=== PATIENT | male | born 1995 | race Hispanic/Latino ===

== ENCOUNTER 2019-10-17 09:45 | Emergency (ER) | payer SELFPAY ==
[2019-10-17] MEDS ORDERED: MEPERIDINE HCL 25 MG/0.5 ML ONE (10:14)
[2019-10-17] MEDS ORDERED: ONDANSETRON 4 MG/2 ML VIAL ONE (10:14)
[2019-10-17] MEDS ORDERED: propofoL 200 MG/20 ML VIAL IV ONE (10:15)
--- NOTE | 2019-10-17 11:23 | EDPHYS ---
Physician Documentation [facility] Name: Kishor León Age: 24 yrs Sex: Male : 1995 Arrival Date: 10/17/2019 Time: 09:46 Bed 7 Private MD: ED Physician Sergio Mayer HPI: 10/17 10:08 This 24 yrs old Male presents to ER via Ambulatory with complaints of Jaw Pain.rn 10:08 The patient presents with pain. The problem is located in the mandible. Onset: The rn symptoms/episode began/occurred just prior to arrival. Modifying factors: The symptoms are alleviated by nothing, the symptoms are aggravated by talking. Severity of symptoms: At their worst the symptoms were mild, in the emergency department the symptoms are unchanged. The patient has experienced a previous episode. Reports yawning, now feels jaw dislocated, has happened once before, no trauma, has not eaten today. Feels like right side is problem side.. Historical: - Allergies: 09:57 No Known Allergies; ss - Home Meds: 09:57 None [Active]; ss - PMHx: 09:57 None; ss - PSHx: 09:57 None; ss - Immunization history:: Adult Immunizations up to date. - Social history:: Smoking status: Patient/guardian denies using tobacco. - Ebola Screening: : Patient denies exposure to infectious person Patient denies travel to an Ebola-affected area in the 21 days before illness onset. - Family history:: not pertinent. - Hospitalizations: : No recent hospitalization is reported. ROS: 10:08 Constitutional: Negative for fever, chills, and weight loss, Eyes: Negative for injury, rn pain, redness, and discharge, ENT: + right jaw pain Neck: Negative for injury, pain, and swelling. Exam: 10:08 Constitutional: This is a well developed, well nourished patient who is awake, alert, rn and in no acute distress. Head/Face: Normocephalic, atraumatic. ENT: + jaw open, unable to close, seems deviated to left. Neck: Trachea midline, no thyromegaly or masses palpated, and no cervical lymphadenopathy. Supple, full range of motion without nuchal rigidity, or vertebral point tenderness. No Meningismus. Vital Signs: 09:56 Temp 98.7(TE); em1 09:57 BP 130 / 75; Pulse 82; Resp 17; Pulse Ox 100% on R/A; Weight 49.9 kg; ss 10:26 BP 118 / 79; Pulse 74 MON; Resp 16 S; Pulse Ox 100% on R/A; sg 10:36 BP 123 / 74; Pulse 110 MON; Resp 14; Pulse Ox 99% on R/A; sg 10:40 BP 129 / 80; Pulse 77; Resp 16; Pulse Ox 97% ; sv 10:43 BP 129 / 80; Pulse 80; Resp 16; Temp 98.7; Pulse Ox 100% on R/A; sg 10:43 BP 124 / 82; Pulse 77; Resp 16; Pulse Ox 100% on R/A; sg Procedures: 10:37 Reduction: of the Mandible, using traction, manipulation, Patient tolerated well. rn Moderate sedation: Pre-procedure assessment: the patient has been NPO 12 hour(s) prior to arrival, ASA physical classification: I - healthy, no underlying organic disease, Airway assessment: able to hyperextend neck, able to maintain airway, can open mouth without difficulty, Monitoring during procedure: poultry cleaner, continuous pulse oximetry, nurse at bedside at all times, Medications employed: demerol, propofol, Post-procedure assessment: the patient is mildly sedated, Respiratory status: even and unlabored, a reversal agent was not used. MDM: 09:58 Patient medically screened. rn 10:39 Differential diagnosis: mandibular dislocation. Data reviewed: vital signs, nurses rn notes, and as a result, I will discharge patient. Counseling: I had a detailed discussion with the patient and/or guardian regarding: the historical points, exam findings, and any diagnostic results supporting the discharge/admit diagnosis, the need for outpatient follow up, to return to the emergency department if symptoms worsen or persist or if there are any questions or concerns that arise at home. Response to treatment: the patient's symptoms have resolved after treatment, the patient's condition has returned to base line, the patient is now symptom free, and as a result, I will discharge patient. ED course: FROM jaw, tolerated reduction well, will dc home when sedation wears off. . 11:21 ED course: Wide awake, will dc with ENT f/u.. rn 10/17 10:03 Order name: Moderate Sedation; Complete Time: 10:23 rn 10/17 10:03 Order name: NPO; Complete Time: : rn Administered Medications: 10:34 Drug: Zofran 4 mg Route: IVP; Site: right antecubital; sg 10:34 Drug: Demerol 25 mg Route: IVP; Site: right antecubital; sg 10:36 Drug: Propofol 40 mg Route: IVP; Site: right antecubital; sg Disposition: 10/17/19 11:22 Discharged to Home. Impression: Mandibular dislocation. - Condition is Stable. - Discharge Instructions: Jaw Dislocation. - Medication Reconciliation Form, Thank You Letter, Antibiotic Education, Prescription Opioid Use form. - Follow up: Mely Blunt MD; When: As needed; Reason: Recheck today's complaints, Re-evaluation by your physician. - Problem is new. - Symptoms are resolved. Signatures: Dispatcher [employer] EDMT Sabas Mcwilliams RN RN sg Nieto, Roman, MD MD rn Smirch, Shelby, RN RN ss Corrections: (The following items were deleted from the chart) 10:55 10:04 Mandible <4 Views+RAD.RAD.BRZ ordered. [facility] EDMT 11:30 11:22 10/17/2019 11:22 Discharged to Home. Impression: Mandibular dislocation. sg Condition is Stable. Forms are Medication Reconciliation Form, Thank You Letter, Antibiotic Education, Prescription Opioid Use. Follow up: Mely Blunt; When: As needed; Reason: Recheck today's complaints, Re-evaluation by your physician. Problem is new. Symptoms are resolved. rn
--- NOTE | 2019-10-17 11:23 | ER ---
Nurse's Notes [facility] Name: Kishor León Age: 24 yrs Sex: Male : 1995 Arrival Date: 10/17/2019 Time: 09:46 Bed 7 Private MD: Diagnosis: Mandibular dislocation Presentation: 10/17 09:56 Presenting complaint: Patient states: yawned 30 minutes ago and now jaw is stuck open. ss Pt reports this has occurred in the past. Transition of care: patient was not received from another setting of care. Onset of symptoms was October 17, 2019. Risk Assessment: Do you want to hurt yourself or someone else? Patient reports no desire to harm self or others. Initial Sepsis Screen: Does the patient meet any 2 criteria? No. Patient's initial sepsis screen is negative. Does the patient have a suspected source of infection? No. Patient's initial sepsis screen is negative. Care prior to arrival: None. 09:56 Acuity: RISHI 3 ss 09:56 Method Of Arrival: Ambulatory ss Historical: - Allergies: 09:57 No Known Allergies; ss - Home Meds: 09:57 None [Active]; ss - PMHx: 09:57 None; ss - PSHx: 09:57 None; ss - Immunization history:: Adult Immunizations up to date. - Social history:: Smoking status: Patient/guardian denies using tobacco. - Ebola Screening: : Patient denies exposure to infectious person Patient denies travel to an Ebola-affected area in the 21 days before illness onset. - Family history:: not pertinent. - Hospitalizations: : No recent hospitalization is reported. Screenin:15 Abuse screen: Denies threats or abuse. Denies injuries from another. Nutritional sg screening: No deficits noted. Tuberculosis screening: No symptoms or risk factors identified. Never had TB. Fall Risk None identified. Assessment: 10:10 General: Appears in no apparent distress. uncomfortable, well groomed, well developed, sg well nourished, Behavior is calm, cooperative, appropriate for age. Pain: Complains of pain in right jaw Quality of pain is described as aching. Neuro: Level of Consciousness is awake, alert, obeys commands. Cardiovascular: Capillary refill is brisk in bilateral fingers Patient's skin is warm and dry. Chest pain is denied. Respiratory: Airway is patent Respiratory effort is even, unlabored, Respiratory pattern is regular, symmetrical. GI: No signs and/or symptoms were reported involving the gastrointestinal system. : No signs and/or symptoms were reported regarding the genitourinary system. EENT: No signs and/or symptoms were reported regarding the EENT system. Derm: Skin is pink, warm \T\ dry. Musculoskeletal: Circulation, motion, and sensation intact. Range of motion: intact in all extremities, Swelling absent. 10:47 Reassessment: Patient appears in no apparent distress at this time. Patient and/or sg family updated on plan of care and expected duration. Pain level reassessed. Patient is alert, oriented x 3, equal unlabored respirations, skin warm/dry/pink. Patient denies pain at this time. Patient states feeling better. Patient states symptoms have improved. Vital Signs: 09:56 Temp 98.7(TE); em1 09:57 BP 130 / 75; Pulse 82; Resp 17; Pulse Ox 100% on R/A; Weight 49.9 kg; ss 10:26 BP 118 / 79; Pulse 74 MON; Resp 16 S; Pulse Ox 100% on R/A; sg 10:36 BP 123 / 74; Pulse 110 MON; Resp 14; Pulse Ox 99% on R/A; sg 10:40 BP 129 / 80; Pulse 77; Resp 16; Pulse Ox 97% ; sv 10:43 BP 129 / 80; Pulse 80; Resp 16; Temp 98.7; Pulse Ox 100% on R/A; sg 10:43 BP 124 / 82; Pulse 77; Resp 16; Pulse Ox 100% on R/A; sg ED Course: 09:46 Patient arrived in ED. as 09:56 Triage completed. ss 09:57 Arm band placed on right wrist. ss 09:58 Sergio Mayer MD is Attending Physician. rn 10:01 Sabas Mcwilliams, JEANETTE is Primary Nurse. sg 10:25 Inserted saline lock: 22 gauge in right antecubital area, using aseptic technique. sg 10:39 Assist provider with reduction of right TMJ using manipulation, Set up for procedure. sg Performed by Sergio Mayer MD Patient tolerated well. 10:40 Patient has correct armband on for positive identification. Placed in gown. Bed in low sg position. Side rails up X2. 11:22 Mely Blunt MD is Referral Physician. rn 11:25 IV discontinued, intact, bleeding controlled, No redness/swelling at site. Pressure sg dressing applied. Administered Medications: 10:34 Drug: Zofran 4 mg Route: IVP; Site: right antecubital; sg 10:34 Drug: Demerol 25 mg Route: IVP; Site: right antecubital; sg 10:36 Drug: Propofol 40 mg Route: IVP; Site: right antecubital; sg Outcome: 11:22 Discharge ordered by MD. rn 11:25 Discharged to home ambulatory, with family. sg 11:25 Condition: good 11:25 Discharge instructions given to patient, family, Instructed on discharge instructions, follow up and referral plans. safety practices, Demonstrated understanding of instructions, follow-up care. 11:30 Patient left the ED. sg Signatures: Mely Daigle, RN JEANETTE Sabas Mcwilliams RN RN sg Martinez, Amelia as Nieto, Roman, MD MD rn Martinez, Haley Russell RN RN Corrections: (The following items were deleted from the chart) 10:55 10:38 Zofran 4 mg IVP in right antecubital sg sg 10:55 10:38 Demerol 25 mg IVP in right antecubital sg sg 10:55 10:39 Propofol 40 mg IVP in right antecubital sg sg
[2019-10-17 11:39] VITALS: TEMP 98.7
[2019-10-17 11:47] VITALS: BP 124/82; O2SAT 100
== END 2019-10-17 11:30 | disposition home or self-care (01) ==
LOC: ER 09:45
PROC: 0RSCXZZ Reposition Right Temporomandibular Joint, External Approach (ICD-10-PCS; principal; 2019-10-17)
DX: S03.01XA Dislocation of jaw, right side, initial encounter (principal)
CPT/HCPCS: 96374; 96375; 99285; J2175; J2405; J2704

== ENCOUNTER 2020-09-02 | Emergency (ER) | payer SELFPAY ==
--- NOTE | 2020-09-02 19:36 | EDPHYS ---
Physician Documentation [facility] Name: Kishor León Age: 25 yrs Sex: Male : 1995 Arrival Date: 09/02/2020 Time: 18:30 Bed 18 Private MD: ED Physician Hermes Rudolph HPI: 09/02 19:28 This 25 yrs old Male presents to ER via Ambulatory with complaints of Jaw Pain.mh7 19:28 The patient or guardian reports pain. The complaints affect the right jaw and left jaw. mh7 Context of injury: The problem was sustained at home, resulted from yawning. Onset: The symptoms/episode began/occurred just prior to arrival, today. Associated signs and symptoms: Loss of consciousness: This patient did not experience any loss of consciousness. Pertinent negatives: patient denies any alcohol consumption, biting tongue, dazed, double vision, headache, incontinence, injury, nausea, neck pain, seizure, shortness of breath, tinnitus, vomiting, weakness in extremities, generalized weakness. Severity of symptoms: At their worst the symptoms were moderate, earlier today, in the emergency department the symptoms are unchanged. The patient has experienced similar episodes in the past, a few times. Historical: - Allergies: 19:05 No Known Allergies; hb - Immunization history:: Adult Immunizations up to date. - Social history:: Smoking status: Patient denies any tobacco usage or history of. ROS: 19:28 Constitutional: Negative for fever, chills, and weight loss, Eyes: Negative for injury, mh7 pain, redness, and discharge, Neck: Negative for injury, pain, and swelling, Cardiovascular: Negative for chest pain, palpitations, and edema, Respiratory: Negative for shortness of breath, cough, wheezing, and pleuritic chest pain, Abdomen/GI: Negative for abdominal pain, nausea, vomiting, diarrhea, and constipation, Back: Negative for injury and pain, : Negative for injury, bleeding, discharge, and swelling, MS/Extremity: Negative for injury and deformity, Skin: Negative for injury, rash, and discoloration, Neuro: Negative for headache, weakness, numbness, tingling, and seizure, Psych: Negative for depression, anxiety, suicide ideation, homicidal ideation, and hallucinations, Allergy/Immunology: Negative for hives, rash, and allergies, Endocrine: Negative for neck swelling, polydipsia, polyuria, polyphagia, and marked weight changes, Hematologic/Lymphatic: Negative for swollen nodes, abnormal bleeding, and unusual bruising. Exam: 19:28 Eyes: Pupils equal round and reactive to light, extra-ocular motions intact. Lids and mh7 lashes normal. Conjunctiva and sclera are non-icteric and not injected. Cornea within normal limits. Periorbital areas with no swelling, redness, or edema. 19:28 Neck: Trachea midline, no thyromegaly or masses palpated, and no cervical lymphadenopathy. Supple, full range of motion without nuchal rigidity, or vertebral point tenderness. No Meningismus. Chest/axilla: Normal chest wall appearance and motion. Nontender with no deformity. No lesions are appreciated. Cardiovascular: Regular rate and rhythm with a normal S1 and S2. No gallops, murmurs, or rubs. Normal PMI, no JVD. No pulse deficits. Respiratory: Lungs have equal breath sounds bilaterally, clear to auscultation and percussion. No rales, rhonchi or wheezes noted. No increased work of breathing, no retractions or nasal flaring. Abdomen/GI: Soft, non-tender, with normal bowel sounds. No distension or tympany. No guarding or rebound. No evidence of tenderness throughout. Back: No spinal tenderness. No costovertebral tenderness. Full range of motion. Skin: Warm, dry with normal turgor. Normal color with no rashes, no lesions, and no evidence of cellulitis. MS/ Extremity: Pulses equal, no cyanosis. Neurovascular intact. Full, normal range of motion. Neuro: Awake and alert, GCS 15, oriented to person, place, time, and situation. Cranial nerves II-XII grossly intact. Motor strength 5/5 in all extremities. Sensory grossly intact. Cerebellar exam normal. Normal gait. Psych: Awake, alert, with orientation to person, place and time. Behavior, mood, and affect are within normal limits. 19:28 Constitutional: The patient appears in no acute distress, alert, awake, uncomfortable. 19:28 Head/face: Noted is tenderness, that is mild, of the right jaw and left jaw, mouth open unable to close. 19:28 ENT: External ear(s): are unremarkable, Nose: is normal, Mouth: open unable to close, Posterior pharynx: is normal, airway is patent, Dental exam: normal. Vital Signs: 19:04 BP 133 / 74; Pulse 68; Resp 16; Temp 99.2; Pulse Ox 100% on R/A; Pain 8/10; hb Procedures: 19:28 Reduction: of the left jaw and right jaw, using traction, manipulation, Patient mh7 tolerated well. MDM: 19:28 Differential diagnosis: TMJ disorder, TMJ dislocation. Data reviewed: vital signs, [facility] nurses notes, old medical records. Data interpreted: Pulse oximetry: on room air is 100 %. Interpretation: normal. Counseling: I had a detailed discussion with the patient and/or guardian regarding: the historical points, exam findings, and any diagnostic results supporting the discharge/admit diagnosis, the need for outpatient follow up, an ENT specialist, to return to the emergency department if symptoms worsen or persist or if there are any questions or concerns that arise at home. Response to treatment: the patient's symptoms have resolved after treatment, the patient's blood pressure is in an acceptable range, mental status has returned to baseline, the patient no longer shows bradycardia, the patient is not short of breath, the patient is not tachycardic, the patient's pain is gone, the patient's temperature has normalized. 19:35 Patient medically screened. [facility] Administered Medications: No medications were administered Disposition: 09/02/20 19:35 Discharged to Home. Impression: Temporal Mandibular Joint Dislocation. - Condition is Stable. - Discharge Instructions: Jaw Dislocation, [id number]. - Medication Reconciliation Form, Thank You Letter, Antibiotic Education, Prescription Opioid Use form. - Follow up: Mely Blunt MD; When: 1 - 2 days; Reason: Worsening of condition, Recheck today's complaints. - Problem is an acute exacerbation. - Symptoms are resolved. Signatures: Destiny Fallon RN RN lp1 Ana Maria Tripathi RN RN Hermes Rudolph MD MD [facility] Corrections: (The following items were deleted from the chart) 19:39 19:35 09/02/2020 19:35 Discharged to Home. Impression: Temporal Mandibular Joint lp1 Dislocation. Condition is Stable. Forms are Medication Reconciliation Form, Thank You Letter, Antibiotic Education, Prescription Opioid Use. Follow up: Mely Blunt; When: 1 - 2 days; Reason: Worsening of condition, Recheck today's complaints. Problem is an acute exacerbation. Symptoms are resolved. mh7
--- NOTE | 2020-09-02 19:36 | ER ---
Nurse's Notes [facility] Name: Kishor León Age: 25 yrs Sex: Male : 1995 Arrival Date: 09/02/2020 Time: 18:30 Bed 18 Private MD: Diagnosis: Temporal Mandibular Joint Dislocation Presentation: 09/02 19:04 Chief complaint: Jaw locked open x 1 hr. Coronavirus screen: At this time, the client hb does not indicate any symptoms associated with coronavirus-19. Ebola Screen: No symptoms or risks identified at this time. Initial Sepsis Screen: Does the patient meet any 2 criteria? No. Patient's initial sepsis screen is negative. Does the patient have a suspected source of infection? No. Patient's initial sepsis screen is negative. Risk Assessment: Do you want to hurt yourself or someone else? Patient reports no desire to harm self or others. Onset of symptoms was September 02, 2020. 19:04 Method Of Arrival: Ambulatory hb 19:04 Acuity: RISHI 3 hb 19:07 Acuity: RISHI 2 lp1 Triage Assessment: 19:20 General: Appears in no apparent distress. Behavior is calm. Pain: Denies pain. EENT: lp1 Oral mucosa is moist. Good dentition noted. Throat is clear mouth partially open, no ROM. Neuro: No deficits noted. Cardiovascular: No deficits noted. Respiratory: Airway is patent. GI: No signs and/or symptoms were reported involving the gastrointestinal system. : No signs and/or symptoms were reported regarding the genitourinary system. Derm: Skin is pink, warm \T\ dry. Musculoskeletal: No deficits noted. Historical: - Allergies: 19:05 No Known Allergies; hb - Immunization history:: Adult Immunizations up to date. - Social history:: Smoking status: Patient denies any tobacco usage or history of. Screenin:32 Abuse screen: Denies threats or abuse. Denies injuries from another. Nutritional lp1 screening: No deficits noted. Tuberculosis screening: No symptoms or risk factors identified. Fall Risk None identified. Assessment: 19:32 Reassessment: Dr. Rudolph at bedside to perform manual manipulation to realign jaw; lp1 patient tolerated well. Vital Signs: 19:04 BP 133 / 74; Pulse 68; Resp 16; Temp 99.2; Pulse Ox 100% on R/A; Pain 8/10; hb ED Course: 18:30 Patient arrived in ED. ds1 19:05 Triage completed. hb 19:05 Arm band placed on. hb 19:10 Hermes Rudolph MD is Attending Physician. 7 19:32 Destiny Fallon, RN is Primary Nurse. lp1 19:34 Mely Blunt MD is Referral Physician. mh7 19:34 Patient has correct armband on for positive identification. lp1 19:34 No provider procedures requiring assistance completed. Patient did not have IV access lp1 during this emergency room visit. Administered Medications: No medications were administered Outcome: 19:35 Discharge ordered by MD. mh7 19:39 Discharged to home ambulatory, with family. lp1 19:39 Condition: good 19:39 Discharge instructions given to patient, Instructed on discharge instructions, follow up and referral plans. Demonstrated understanding of instructions, follow-up care, splint care, No opening mouth wide, soft foods, OTC meds for pain 19:39 Patient left the ED. lp1 Signatures: Rosa Urrutia ds1 Destiny Fallon, JEANETTE RN 1 Ana Maria Tripathi, JEANETTE RN Hermes Rudolph MD MD [facility]
== END 2020-09-02 19:39 | disposition home or self-care (01) ==
PROC: 0RSDXZZ Reposition Left Temporomandibular Joint, External Approach (ICD-10-PCS; principal; 2020-09-02)
PROC: 0RSCXZZ Reposition Right Temporomandibular Joint, External Approach (ICD-10-PCS; 2020-09-02)
DX: S03.03XA Dislocation of jaw, bilateral, initial encounter (principal)
CPT/HCPCS: 99281

== ENCOUNTER 2021-02-18 02:17 | Emergency (ER) | payer SELFPAY ==
--- NOTE | 2021-02-18 03:01 | ER ---
Nurse's Notes [facility] Name: Kishor León Age: 25 yrs Sex: Male : 1995 Arrival Date: 02/18/2021 Time: 02:22 Bed 23 Private MD: Diagnosis: Temporomandibular Joint Disclocation Presentation: 02/18 02:35 Chief complaint: Parent and/or Guardian states: He yawned and dislocated his jaw, its iw happened before. Coronavirus screen: Client denies travel out of the [place] in the last 14 days. At this time, the client does not indicate any symptoms associated with coronavirus-19. Ebola Screen: No symptoms or risks identified at this time. Initial Sepsis Screen: Does the patient meet any 2 criteria? No. Patient's initial sepsis screen is negative. Does the patient have a suspected source of infection? No. Patient's initial sepsis screen is negative. Risk Assessment: Do you want to hurt yourself or someone else? Patient reports no desire to harm self or others. Onset of symptoms was February 18, 2021. 02:35 Method Of Arrival: Ambulatory iw 02:35 Acuity: RISHI 4 iw Historical: - Allergies: 02:37 No Known Allergies; iw - Home Meds: 02:37 None [Active]; iw - PMHx: 02:37 None; iw - PSHx: 02:37 None; iw - Immunization history:: Adult Immunizations unknown, Client reports having NOT received the Covid vaccine. - Social history:: Smoking status: Patient denies any tobacco usage or history of. Screenin:42 Abuse screen: Denies threats or abuse. Nutritional screening: No deficits noted. iw Tuberculosis screening: No symptoms or risk factors identified. Fall Risk None identified. Assessment: 02:41 General: Appears in no apparent distress. Behavior is calm, cooperative. Pain: iw Complains of pain in right jaw and left jaw. Neuro: No deficits noted. Cardiovascular: Patient's skin is warm and dry. Respiratory: Respiratory effort is even, unlabored. GI: No signs and/or symptoms were reported involving the gastrointestinal system. : No signs and/or symptoms were reported regarding the genitourinary system. EENT: JAYNA jaw dislocation noted. . Musculoskeletal: Circulation, motion, and sensation intact. Vital Signs: 02:35 BP 118 / 77; Pulse 77; Resp 16; Temp 97.3; Pulse Ox 100% on R/A; Weight 52.16 kg; iw Elinor Coma Score: 02:52 Eye Response: spontaneous(4). Verbal Response: oriented(5). Motor Response: obeys mh7 commands(6). Total: 15. 02:52 Eye Response: spontaneous(4). Verbal Response: oriented(5). Motor Response: obeys mh7 commands(6). Total: 15. ED Course: 02:22 Patient arrived in ED. es 02:36 Triage completed. iw 02:37 Arm band placed on right wrist. iw 02:41 Shara Garza RN is Primary Nurse. iw 02:41 Hermes Rudolph MD is Attending Physician. mh7 02:42 Patient has correct armband on for positive identification. iw 02:42 No provider procedures requiring assistance completed. Patient did not have IV access iw during this emergency room visit. 02:58 Mely Blunt MD is Referral Physician. 7 Administered Medications: No medications were administered Outcome: 02:43 Discharged to home ambulatory. iw 02:43 Condition: stable 02:43 Discharge instructions given to patient, family, Instructed on follow up and referral plans. Demonstrated understanding of instructions, follow-up care. 03:00 Discharge ordered by . mh7 03:05 Patient left the ED. iw Signatures: Patti Escobar Irene, JEANETTE REID iw Hermes Rudolph MD MD mh7
--- NOTE | 2021-02-18 03:01 | EDPHYS ---
Physician Documentation [facility] Name: Kishor León Age: 25 yrs Sex: Male : 1995 Arrival Date: 02/18/2021 Time: 02:22 Bed 23 Private MD: ED Physician Hermes Rudolph HPI: 02/18 02:47 This 25 yrs old Male presents to ER via Ambulatory with complaints of mh7 Dislocated jaw. 02:49 The patient or guardian reports pain. The complaints affect the right jaw and left jaw. mh7 Context of injury: The problem was sustained at home, resulted from yawning. Onset: The symptoms/episode began/occurred today. Associated signs and symptoms: Pertinent negatives: biting tongue, dazed, double vision, headache, injury, nausea, tinnitus, vomiting, weakness in extremities, generalized weakness. Severity of symptoms: At their worst the symptoms were moderate, earlier today, in the emergency department the symptoms are unchanged. 02:52 The patient has experienced similar episodes in the past, multiple times. mh7 Historical: - Allergies: 02:37 No Known Allergies; iw - Home Meds: 02:37 None [Active]; iw - PMHx: 02:37 None; iw - PSHx: 02:37 None; iw - Immunization history:: Adult Immunizations unknown, Client reports having NOT received the Covid vaccine. - Social history:: Smoking status: Patient denies any tobacco usage or history of. ROS: 02:52 Constitutional: Negative for fever, chills, and weight loss, Eyes: Negative for injury, mh7 pain, redness, and discharge, Neck: Negative for injury, pain, and swelling, Cardiovascular: Negative for chest pain, palpitations, and edema, Respiratory: Negative for shortness of breath, cough, wheezing, and pleuritic chest pain, Abdomen/GI: Negative for abdominal pain, nausea, vomiting, diarrhea, and constipation, Back: Negative for injury and pain, : Negative for injury, bleeding, discharge, and swelling, MS/Extremity: Negative for injury and deformity, Skin: Negative for injury, rash, and discoloration, Neuro: Negative for headache, weakness, numbness, tingling, and seizure, Psych: Negative for depression, anxiety, suicide ideation, homicidal ideation, and hallucinations, Allergy/Immunology: Negative for hives, rash, and allergies, Endocrine: Negative for neck swelling, polydipsia, polyuria, polyphagia, and marked weight changes, Hematologic/Lymphatic: Negative for swollen nodes, abnormal bleeding, and unusual bruising. Exam: 02:52 Constitutional: This is a well developed, well nourished patient who is awake, alert, mh7 and in no acute distress. 02:52 Eyes: Pupils equal round and reactive to light, extra-ocular motions intact. Lids and lashes normal. Conjunctiva and sclera are non-icteric and not injected. Cornea within normal limits. Periorbital areas with no swelling, redness, or edema. ENT: Nares patent. No nasal discharge, no septal abnormalities noted. Tympanic membranes are normal and external auditory canals are clear. Oropharynx with no redness, swelling, or masses, exudates, or evidence of obstruction, uvula midline. Mucous membranes moist. Neck: Trachea midline, no thyromegaly or masses palpated, and no cervical lymphadenopathy. Supple, full range of motion without nuchal rigidity, or vertebral point tenderness. No Meningismus. Chest/axilla: Normal chest wall appearance and motion. Nontender with no deformity. No lesions are appreciated. Cardiovascular: Regular rate and rhythm with a normal S1 and S2. No gallops, murmurs, or rubs. Normal PMI, no JVD. No pulse deficits. Respiratory: Lungs have equal breath sounds bilaterally, clear to auscultation and percussion. No rales, rhonchi or wheezes noted. No increased work of breathing, no retractions or nasal flaring. Abdomen/GI: Soft, non-tender, with normal bowel sounds. No distension or tympany. No guarding or rebound. No evidence of tenderness throughout. Back: No spinal tenderness. No costovertebral tenderness. Full range of motion. Skin: Warm, dry with normal turgor. Normal color with no rashes, no lesions, and no evidence of cellulitis. MS/ Extremity: Pulses equal, no cyanosis. Neurovascular intact. Full, normal range of motion. Neuro: Awake and alert, GCS 15, oriented to person, place, time, and situation. Cranial nerves II-XII grossly intact. Motor strength 5/5 in all extremities. Sensory grossly intact. Cerebellar exam normal. Normal gait. Psych: Awake, alert, with orientation to person, place and time. Behavior, mood, and affect are within normal limits. 02:52 Head/face: Noted is tenderness, that is mild, of the right jaw and left jaw, displacement right jaw and left jaw. Vital Signs: 02:35 BP 118 / 77; Pulse 77; Resp 16; Temp 97.3; Pulse Ox 100% on R/A; Weight 52.16 kg; iw Stringer Coma Score: 02:52 Eye Response: spontaneous(4). Verbal Response: oriented(5). Motor Response: obeys mh7 commands(6). Total: 15. 02:52 Eye Response: spontaneous(4). Verbal Response: oriented(5). Motor Response: obeys mh7 commands(6). Total: 15. Procedures: 02:52 Reduction: of the left jaw and right jaw, using manipulation, Patient tolerated well. [facility] MDM: 02:52 Differential diagnosis: temporomandibular joint dislocation, mandible dislocation. Data [facility] reviewed: vital signs, nurses notes. Data reviewed: old medical records. Data interpreted: Pulse oximetry: on room air is 100 %. Interpretation: normal. Counseling: I had a detailed discussion with the patient and/or guardian regarding: the historical points, exam findings, and any diagnostic results supporting the discharge/admit diagnosis, the need for outpatient follow up, to return to the emergency department if symptoms worsen or persist or if there are any questions or concerns that arise at home. 02:58 Response to treatment: the patient's symptoms have resolved after treatment, the [facility] patient's blood pressure is in an acceptable range, mental status has returned to baseline, the patient no longer shows bradycardia, the patient is not short of breath, the patient is not tachycardic, the patient's pain is gone, the patient's temperature has normalized, the patient is now symptom free. 03:00 Patient medically screened. [facility] Administered Medications: No medications were administered Disposition: 02/18/21 03:00 Discharged to Home. Impression: Temporomandibular Joint Disclocation. - Condition is Stable. - Discharge Instructions: Jaw Dislocation, [id number]. - Medication Reconciliation Form, Thank You Letter, Antibiotic Education, Prescription Opioid Use form. - Follow up: Private Physician; When: 1 - 2 days; Reason: Worsening of condition, Recheck today's complaints, Continuance of care, Re-evaluation by your physician. Follow up: Mely Blunt MD; When: 1 - 2 days; Reason: Worsening of condition, Recheck today's complaints. - Problem is an acute exacerbation. - Symptoms have improved. Signatures: Shara Garza, RN RN iw Hermes Rudolph MD MD mh7 Corrections: (The following items were deleted from the chart) 03:05 03:00 02/18/2021 03:00 Discharged to Home. Impression: Temporomandibular Joint iw Disclocation. Condition is Stable. Forms are Medication Reconciliation Form, Thank You Letter, Antibiotic Education, Prescription Opioid Use. Follow up: Private Physician; When: 1 - 2 days; Reason: Worsening of condition, Recheck today's complaints, Continuance of care, Re-evaluation by your physician. Follow up: Mely Blunt; When: 1 - 2 days; Reason: Worsening of condition, Recheck today's complaints. Problem is an acute exacerbation. Symptoms have improved. mh7
[2021-02-18 03:11] VITALS: BP 118/77; TEMP 97.3; O2SAT 100
== END 2021-02-18 03:05 | disposition home or self-care (01) ==
LOC: ER 02:17
PROC: 0RSDXZZ Reposition Left Temporomandibular Joint, External Approach (ICD-10-PCS; principal; 2021-02-18)
PROC: 0RSCXZZ Reposition Right Temporomandibular Joint, External Approach (ICD-10-PCS; 2021-02-18)
DX: S03.03XA Dislocation of jaw, bilateral, initial encounter (principal)
CPT/HCPCS: 99281

== ENCOUNTER 2021-08-02 10:14 | Emergency (ER) | payer SELFPAY ==
--- NOTE | 2021-08-02 10:41 | ER ---
Nurse's Notes [facility] Name: Kishor León Age: 26 yrs Sex: Male : 1995 Arrival Date: 08/02/2021 Time: 10:15 Bed 12 Private MD: Diagnosis: Dislocation of jaw, right side, initial encounter Presentation: 08/02 10:30 Chief complaint: Patient states: Lock Jaw stuck open. Coronavirus screen: Vaccine ch5 status: Patient reports being unvaccinated. Ebola Screen: Patient negative for fever greater than or equal to 101.5 degrees Fahrenheit, and additional compatible Ebola Virus Disease symptoms Patient denies exposure to infectious person. Patient denies travel to an Ebola-affected area in the 21 days before illness onset. Initial Sepsis Screen: Does the patient meet any 2 criteria? No. Patient's initial sepsis screen is negative. Does the patient have a suspected source of infection? No. Patient's initial sepsis screen is negative. Risk Assessment: Do you want to hurt yourself or someone else? Patient reports no desire to harm self or others. Onset of symptoms. Onset of symptoms was August 02, 2021. 10:30 Method Of Arrival: Ambulatory 5 10:30 Acuity: RISHI 4 5 Triage Assessment: 10:32 General: Appears in no apparent distress. Behavior is appropriate for age. Pain: 5 Complains of pain in Jaw. 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 - Social history:: Smoking status: Patient denies any tobacco usage or history of. - Family history:: not pertinent. - Hospitalizations: : No recent hospitalization is reported. Screenin:36 Abuse screen: Denies threats or abuse. Denies injuries from another. Nutritional 5 screening: No deficits noted. Tuberculosis screening: No symptoms or risk factors identified. Fall Risk None identified. Assessment: 10:36 Reassessment: Seen in Triage and put in place by Dr Mayer. Pt tolerated well.. 5 Vital Signs: 10:30 BP 131 / 89; Pulse 66; Resp 18; Temp 97.8(TE); Pulse Ox 100% on R/A; Weight 52.16 kg; ch5 Height 5 ft. 4 in. (162.56 cm); Pain 10/10; 10:30 Body Mass Index 19.74 (52.16 kg, 162.56 cm) 5 ED Course: 10:15 Patient arrived in ED. mr 10:22 Sergio Mayer MD is Attending Physician. rn 10:32 Triage completed. ch5 10:36 Arm band placed on right wrist. ch5 10:36 No provider procedures requiring assistance completed. Patient did not have IV access 5 during this emergency room visit. 10:39 Francheska Le, RN is Primary Nurse. ap3 Administered Medications: No medications were administered Outcome: 10:36 Discharged to home ch5 10:36 Condition: improved 10:36 Discharge instructions given to 10:40 Discharge ordered by . rn 10:42 Patient left the ED. 5 Signatures: Nancy Hampton mr Sergio Mayer MD MD rn Prokisch, Amanda, RN RN ap3 Jonathan Price RN RN 5
--- NOTE | 2021-08-02 10:41 | EDPHYS ---
Physician Documentation [facility] Name: Kishor León Age: 26 yrs Sex: Male : 1995 Arrival Date: 08/02/2021 Time: 10:15 Bed 12 Private MD: ED Physician Sergio Mayer HPI: 08/02 10:35 This 26 yrs old Male presents to ER via Ambulatory with complaints of Jaw rn dislocation. 10:35 The patient presents with pain. The problem is located in the Right temporomandibular rn joint. Onset: The symptoms/episode began/occurred just prior to arrival. Duration: The symptoms. Modifying factors: The symptoms are alleviated by nothing, the symptoms are aggravated by nothing. Severity of symptoms: At their worst the symptoms were mild, in the emergency department the symptoms are unchanged. The patient has experienced similar episodes in the past. The patient has not recently seen a physician. 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 No other injuries or complaints. Feels like right side is the one that is out.. 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 - Social history:: Smoking status: Patient denies any tobacco usage or history of. - Family history:: not pertinent. - Hospitalizations: : No recent hospitalization is reported. ROS: 10:35 Constitutional: Negative for fever, chills, and weight loss, ENT: Positive right TMJ rn dislocation and pain Exam: 10:35 Constitutional: This is a well developed, well nourished patient who is awake, alert, rn and in no acute distress. Head/Face: Normocephalic, atraumatic. ENT: Patient unable to close mouth, resting with mouth open and right-sided temporomandibular joint dislocation evident. No tenderness or dislocation of the left side. Vital Signs: 10:30 BP 131 / 89; Pulse 66; Resp 18; Temp 97.8(TE); Pulse Ox 100% on R/A; Weight 52.16 kg; ch5 Height 5 ft. 4 in. (162.56 cm); Pain 10/10; 10:30 Body Mass Index 19.74 (52.16 kg, 162.56 cm) ch5 Procedures: 10:35 Reduction: of the Right temporomandibular joint, using External reduction using rn pressure on ipsilateral mandibular ramus with contralateral traction of the left jaw. Patient tolerated well and reduction successful. Now has full range of motion of mouth and jaw., Patient tolerated well. MDM: 10:22 Patient medically screened. rn 10:35 Differential diagnosis: Temporomandibular joint dislocation. Data reviewed: vital rn signs, nurses notes, old medical records, and as a result, I will discharge patient. Counseling: I had a detailed discussion with the patient and/or guardian regarding: the historical points, exam findings, and any diagnostic results supporting the discharge/admit diagnosis, the need for outpatient follow up, to return to the emergency department if symptoms worsen or persist or if there are any questions or concerns that arise at home. Response to treatment: the patient's symptoms have resolved after treatment, the patient's condition has returned to base line, the patient is now symptom free, and as a result, I will discharge patient. Special discussion: I discussed with the patient/guardian in detail that at this point there is no indication for admission to the hospital. It is understood, however, that if the symptoms persist or worsen the patient needs to return immediately for re-evaluation. ED course: Taught patient how to reduce temporomandibular joint for future reference.. 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
[2021-08-02 10:49] VITALS: BP 131/89; TEMP 97.8; O2SAT 100
== END 2021-08-02 10:42 | disposition home or self-care (01) ==
LOC: ER 10:14
PROC: 0RSCXZZ Reposition Right Temporomandibular Joint, External Approach (ICD-10-PCS; principal; 2021-08-02)
DX: S03.01XA Dislocation of jaw, right side, initial encounter (principal)
CPT/HCPCS: 99281

== ENCOUNTER 2023-03-24 10:09 | Emergency (ER) | payer SELFPAY ==
--- NOTE | 2023-03-24 11:09 | ER ---
Nurse's Notes [facility] Name: Kishor León Age: 27 yrs Sex: Male : 1995 Arrival Date: 03/24/2023 Time: 10:09 Bed 15 Private MD: Diagnosis: Dislocation of jaw;Jaw pain Presentation: 03/24 10:17 Chief complaint: Patient states: "I dislocated my jaw when I woke up with this morning, aa5 when I yawned". Coronavirus screen: At this time, the client does not indicate any symptoms associated with coronavirus-19. Ebola Screen: Patient denies travel to an Ebola-affected area in the 21 days before illness onset. Initial Sepsis Screen: Does the patient meet any 2 criteria? No. Patient's initial sepsis screen is negative. Does the patient have a suspected source of infection? No. Patient's initial sepsis screen is negative. Risk Assessment: Do you want to hurt yourself or someone else? Patient reports no desire to harm self or others. Onset of symptoms was March 2023. 10:17 Method Of Arrival: Ambulatory aa5 10:17 Acuity: RISHI 3 aa5 Triage Assessment: 10:30 General: Appears in no apparent distress. Behavior is calm, cooperative, appropriate bp for age. Pain: Complains of pain in face and chin. EENT: Reports pain in face and chin. Neuro: No deficits noted. Cardiovascular: No deficits noted. Respiratory: No deficits noted. GI: No signs and/or symptoms were reported involving the gastrointestinal system. : No signs and/or symptoms were reported regarding the genitourinary system. Derm: No deficits noted. Musculoskeletal: Reports pain in chin. Historical: - Allergies: 10:17 No Known Allergies; aa5 - PMHx: 10:17 lock jaw; aa5 - Immunization history:: Adult Immunizations unknown. - Social history:: Smoking status: Patient denies any tobacco usage or history of. - Family history:: not pertinent. Screenin:30 [facility] ED Fall Risk Assessment (Adult) History of falling in the last 3 months, bp including since admission No falls in past 3 months (0 pts). Abuse screen: Denies threats or abuse. Denies injuries from another. Nutritional screening: No deficits noted. Tuberculosis screening: No symptoms or risk factors identified. Assessment: 10:30 General: SEE TRIAGE NOTE. bp 11:30 Reassessment: PT REDUCED OWN MANDIBLE. DC HOME. bp Vital Signs: 10:18 BP 138 / 94; Pulse 70; Resp 16 S; Temp 98.2(TE); Pulse Ox 100% on R/A; Weight 51.26 kg aa5 (M); ED Course: 10:10 Patient arrived in ED. am2 10:17 Arm band placed on. aa5 10:18 Triage completed. aa5 10:23 Vega Zavala, RN is Primary Nurse. bp 10:27 Sarwat Walker MD is Attending Physician. pia 11:08 Anthony Masters DDS is Referral Physician. pia 11:30 Patient has correct armband on for positive identification. Bed in low position. Call bp light in reach. Side rails up X2. 11:30 No provider procedures requiring assistance completed. Patient did not have IV access bp during this emergency room visit. Administered Medications: No medications were administered Medication: 11:30 VIS not applicable for this client. bp Outcome: 11:09 Discharge ordered by . pia 11:30 Discharged to home ambulatory. bp 11:30 Condition: stable 11:30 Discharge instructions given to patient, Instructed on discharge instructions, follow up and referral plans. Demonstrated understanding of instructions, follow-up care. 11:35 Patient left the ED. bp Signatures: Sarwat Walker MD MD cha Calderon, Audri, RN RN aa5 Francheska Candelaria am Vega Zaavla, RN RN bp Corrections: (The following items were deleted from the chart) 10:20 10:18 BP 138 / 94; Pulse 70bpm; Resp 16bpm; Spontaneous; Pulse Ox 100% RA; Temp 98.2F aa5 Temporal; aa5
--- NOTE | 2023-03-24 11:09 | EDPHYS ---
Physician Documentation [facility] Name: Kishor León Age: 27 yrs Sex: Male : 1995 Arrival Date: 03/24/2023 Time: 10:09 Bed 15 Private MD: ED Physician Sarwat Walker HPI: 03/24 11:04 This 27 yrs old Male presents to ER via Ambulatory with complaints of Jaw Pain pia - dislocated. 11:04 The patient presents with pain. The problem is located in the chin. pia Historical: - Allergies: 10:17 No Known Allergies; aa5 - PMHx: 10:17 lock jaw; aa5 - Immunization history:: Adult Immunizations unknown. - Social history:: Smoking status: Patient denies any tobacco usage or history of. - Family history:: not pertinent. ROS: 11:04 Constitutional: Negative for fever, chills, and weight loss, Eyes: Negative for injury, pia pain, redness, and discharge, Neck: Negative for injury, pain, and swelling, Cardiovascular: Negative for chest pain, palpitations, and edema, Respiratory: Negative for shortness of breath, cough, wheezing, and pleuritic chest pain, Abdomen/GI: Negative for abdominal pain, nausea, vomiting, diarrhea, and constipation, Back: Negative for injury and pain, : Negative for injury, bleeding, discharge, and swelling, MS/Extremity: Negative for injury and deformity, Skin: Negative for injury, rash, and discoloration, Neuro: Negative for headache, weakness, numbness, tingling, and seizure, Psych: Negative for depression, anxiety, suicide ideation, homicidal ideation, and hallucinations, Allergy/Immunology: Negative for hives, rash, and allergies, Endocrine: Negative for neck swelling, polydipsia, polyuria, polyphagia, and marked weight changes. 11:04 ENT: Positive for jaw dislocated. Exam: 11:04 Constitutional: This is a well developed, well nourished patient who is awake, alert, pia and in no acute distress. Eyes: Pupils equal round and reactive to light, extra-ocular motions intact. Lids and lashes normal. Conjunctiva and sclera are non-icteric and not injected. Cornea within normal limits. Periorbital areas with no swelling, redness, or edema. ENT: Nares patent. No nasal discharge, no septal abnormalities noted. Tympanic membranes are normal and external auditory canals are clear. Oropharynx with no redness, swelling, or masses, exudates, or evidence of obstruction, uvula midline. Mucous membranes moist. Neck: Trachea midline, no thyromegaly or masses palpated, and no cervical lymphadenopathy. Supple, full range of motion without nuchal rigidity, or vertebral point tenderness. No Meningismus. Chest/axilla: Normal chest wall appearance and motion. Nontender with no deformity. No lesions are appreciated. Cardiovascular: Regular rate and rhythm with a normal S1 and S2. No gallops, murmurs, or rubs. Normal PMI, no JVD. No pulse deficits. Respiratory: Lungs have equal breath sounds bilaterally, clear to auscultation and percussion. No rales, rhonchi or wheezes noted. No increased work of breathing, no retractions or nasal flaring. Abdomen/GI: Soft, non-tender, with normal bowel sounds. No distension or tympany. No guarding or rebound. No evidence of tenderness throughout. Back: No spinal tenderness. No costovertebral tenderness. Full range of motion. Skin: Warm, dry with normal turgor. Normal color with no rashes, no lesions, and no evidence of cellulitis. MS/ Extremity: Pulses equal, no cyanosis. Neurovascular intact. Full, normal range of motion. Neuro: Awake and alert, GCS 15, oriented to person, place, time, and situation. Cranial nerves II-XII grossly intact. Motor strength 5/5 in all extremities. Sensory grossly intact. Cerebellar exam normal. Normal gait. Psych: Awake, alert, with orientation to person, place and time. Behavior, mood, and affect are within normal limits. 11:04 Head/face: Noted is deformity, of the right jaw and left jaw. Vital Signs: 10:18 BP 138 / 94; Pulse 70; Resp 16 S; Temp 98.2(TE); Pulse Ox 100% on R/A; Weight 51.26 kg aa5 (M); MDM: 10:27 Patient medically screened. [facility] 11:07 Differential diagnosis: dental caries, dental abscess. Data reviewed: vital signs, [facility] nurses notes. Consideration of Admission/Observation Escalation of care including admission/observation considered. I considered the following discharge prescriptions or medication management in the emergency department Medications were administered in the Emergency Department. See MAR. Test considered but Not performed: Other Details none jaw spontaneous reduced. Care significantly affected by the following chronic conditions: jaw dislocation, sublux. Administered Medications: No medications were administered Disposition Summary: 03/24/23 11:09 Discharge Ordered Location: Home [facility] Problem: new pia Symptoms: have improved pia Condition: Stable pia Diagnosis - Dislocation of jaw pia - Jaw pain pia Followup: pia - With: Private Physician - When: 2 - 3 days - Reason: Recheck today's complaints, Continuance of care, Re-evaluation by your physician Followup: pia - With: Anthony Masters DDS - When: 2 - 3 days - Reason: Recheck today's complaints, Re-evaluation by your physician Discharge Instructions: - Discharge Summary Sheet pia - Jaw Dislocation pia - Jaw Dislocation, [id number] [facility] Forms: - Medication Reconciliation Form pia - Thank You Letter pia - Antibiotic Education pia - Prescription Opioid Use [facility] Prescriptions: - Motrin IB 200 mg Oral Tablet - take 2 tablet by ORAL route every 6 hours As needed as needed with food; 30 pia tablet; Refills: 0, Product Selection Permitted Signatures: Sarwat Walker MD MD cha Calderon, Audri, RN RN aa5
[2023-03-24 12:04] VITALS: BP 138/94; TEMP 98.2; O2SAT 100
== END 2023-03-24 11:35 | disposition home or self-care (01) ==
LOC: ER 10:09
DX: S03.03XA Dislocation of jaw, bilateral, initial encounter (principal)
CPT/HCPCS: 99282

== ENCOUNTER → 2023-12-22 | Emergency (ER) | payer BC, SELFPAY ==
[~2023-12-22] MED LIST: LORazepam 2 MG/ML VIAL ONE; NA CHLORIDE 0.9% 1,000 ML ONE
[2023-12-22 17:51] LABS: Absolute Lymphocytes (CBC) 1.2 K/uL (0.7-4.9); Absolute Monocytes 0.4 K/uL (0.1-1.3); Basophils % 0.3 % (0-1.3); Eosinophils % 0.1 % (0-4.4); Hematocrit 47.7 % (39.6-49.0); Hemoglobin 16.4 g/dL (13.6-17.9); Lymphocytes % 10.3 % (15.3-44.8); MCH 30.1 pg (27.0-35.0); MCHC 34.3 g/dL (32.0-36.0); MCV 87.6 fL (80-100); MPV 10.5 fL (7.6-11.3); Monocytes % 3.5 % (3.3-12.3); Neutrophils % 85.8 % (41.7-73.7); Nucleated Red Blood Cells % 0.1 % (0-0); Platelets 142 thou/uL (152-406); RBC Red Blood Cell Count 5.44 M/uL (4.33-5.43)
--- NOTE | 2023-12-22 17:58 | RAD REPORT ---
[facility]35 pm CLINICAL HISTORY: CHEST PAIN COMPARISON: No comparisons TECHNIQUE: Portable AP view of the chest. FINDINGS: The lungs are clear. No pneumothorax or effusion. The cardiomediastinal contours are unre markable. IMPRESSION: No acute cardiopulmonary process.
[2023-12-22 18:12] LABS: Specific Gravity 1.007 (1.005-1.030); Sqamous Epithelial None Seen /HPF (None Seen); Urine Bacteria None Seen /HPF (<20); Urine Bilirubin NEGATIVE (Negative); Urine Blood Negative (Negative); Urine Clarity Clear (Clear); Urine Color Colorless (Yellow); Urine Culture Reflex Order NOT NEEDED; Urine Glucose NEGATIVE (Negative); Urine Ketones NEGATIVE (Negative); Urine Micro Reflex YN NO BILL MICROSCOPIC; Urine Nitrite NEGATIVE (Negative); Urine Protein NEGATIVE (Negative); Urine RBC <5 /HPF (None Seen); Urine Urobilinogen Normal (Normal); Urine WBC <5 /HPF (<5); Urine pH 7.5 (5.0-7.0)
[2023-12-22 18:21] LABS: Barbiturates NEGATIVE (NEGATIVE); Benzodiazepines NEGATIVE (NEGATIVE); Cocaine NEGATIVE (NEGATIVE); METHAMPHETAM NEGATIVE (NEGATIVE); Methadone NEGATIVE (NEGATIVE); Opiates NEGATIVE (NEGATIVE); Phencyclidine NEGATIVE (NEGATIVE); THC Cannibis NEGATIVE (NEGATIVE)
[2023-12-22 18:28] LABS: Anion Gap 9.6 mEq/L (5.0-15.0); Thyroid Stimulating Hormone 2.02 uIU/mL (0.358-3.740); Troponin High Sensitivity 5.4 pg/mL (<58.9)
[2023-12-22 18:29] LABS: Potassium 3.6 mEq/L (3.5-5.1)
[2023-12-22 18:30] LABS: T3 Free 3.56 pg/mL (2.18-3.98)
--- NOTE | 2023-12-22 19:44 | ER ---
Nurse's Notes [facility] Name: Kishor León Age: 28 yrs Sex: Male : 1995 Arrival Date: 12/22/2023 Time: 16:55 Bed 6 Private MD: Diagnosis: Palpitations;Chest pain, unspecified;Paresthesia of skin-tingling of fingertips of left hand Presentation: 12/21 17:03 Chief complaint: Patient states: Slight L sided chest pain, heart racing, finger numb ph on L side, states that he was working out when it started, did take pre-work out supplements. Coronavirus screen: Vaccine status: Patient reports being unvaccinated. Ebola Screen: No symptoms or risks identified at this time. Initial Sepsis Screen: Does the patient meet any 2 criteria? No. Patient's initial sepsis screen is negative. Does the patient have a suspected source of infection? No. Patient's initial sepsis screen is negative. Risk Assessment: Do you want to hurt yourself or someone else? Patient reports no desire to harm self or others. Onset of symptoms was December 22, 2023. 17:03 Method Of Arrival: Ambulatory ph 17:03 Acuity: RISHI 2 kb3 Triage Assessment: 17:11 General: Appears in no apparent distress. Behavior is cooperative, anxious. Pain: ph Complains of pain in chest. Cardiovascular: Capillary refill < 3 seconds in bilateral fingers Patient's skin is warm and dry. Derm: Skin Skin is pink, warm \T\ dry. 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 - Social history:: Smoking status: Patient denies any tobacco usage or history of. Screenin:00 [facility] ED Fall Risk Assessment (Adult) History of falling in the last 3 months, ko1 including since admission No falls in past 3 months (0 pts) Confusion or Disorientation No (0 pts) Intoxicated or Sedated No (0 pts) Impaired Gait No (0 pts) Mobility Assist Device Used No (0 pt) Altered Elimination No (0 pt) Score/Fall Risk Level 0 - 2 = Low Risk Oriented to surroundings, Maintained a safe environment, Educated pt \T\ family on fall prevention, incl call for assistance when getting out of bed, Assessed \T\ reinforced patient's understanding of fall precautions, Provided non-skid footwear, Hourly rounding (assess needs \T\ fall precautionary measures) done, Used ambulatory aids as needed (educated on \T\ assisted with), Used gait belt as appropriate. Abuse screen: Denies threats or abuse. Denies injuries from another. Nutritional screening: No deficits noted. Tuberculosis screening: No symptoms or risk factors identified. Assessment: 18:00 General: Appears in no apparent distress. Behavior is cooperative, appropriate for age, ko1 anxious. Pain: Complains of pain in chest Pain does not radiate. Pain began suddenly. Neuro: No deficits noted. Cardiovascular: Reports chest pain. Respiratory: No deficits noted. GI: No deficits noted. : No deficits noted. EENT: No deficits noted. Derm: No deficits noted. Musculoskeletal: No deficits noted. Vital Signs: 17:03 Weight 52.16 kg; Height 5 ft. 4 in. ; ph 17:12 BP 142 / 83; Pulse 102; Resp 18; Temp 98; ph 18:31 BP 134 / 78 LA Supine (auto/reg); Pulse 92; Resp 15; Pulse Ox 99% ; ko1 18:31 BP 128 / 72 RA Supine (auto/reg); Pulse 95; Resp 15; Pulse Ox 100% ; ko1 20:06 BP 121 / 74; Pulse 91; Resp 18; Temp 98; Pulse Ox 99% ; rv 17:03 Body Mass Index 19.74 (52.16 kg, 162.56 cm) ph Elinor Coma Score: 20:06 Eye Response: spontaneous(4). Motor Response: obeys commands(6). Verbal Response: rv oriented(5). Total: 15. ED Course: 16:57 Patient arrived in ED. mr 16:59 Sarwat Peres PA is PHCP. cp 17:00 Maverick Deleon MD is Attending Physician. cp 17:11 Triage completed. ph 17:11 Arm band placed on. EKG completed in triage. Results shown to MD. ph 17:33 [place] Deluna, JEANETTE is Primary Nurse. ko1 17:37 XRAY Chest (1 view) In Process Unspecified. EDMS 17:50 Initial lab(s) drawn, by me, sent to lab. Urine collected: clean catch specimen, clear, ko1 EKG done, Legal drug screen obtained per protocol. Inserted saline lock: 22 gauge in right antecubital area, using aseptic technique. Blood collected. Patient maintains SpO2 saturation greater than 95% on room air. 17:51 T4 Free Sent. ko1 17:51 T3 Free Sent. ko1 17:51 TSH Sent. ko1 17:51 Basic Metabolic Panel Sent. ko1 17:51 CBC with Diff Sent. ko1 17:51 D-Dimer Sent. ko1 17:51 Magnesium Sent. ko1 17:51 Troponin HS Sent. ko1 17:58 UDS Sent. ko1 17:58 Urinalysis W/Microscopic Sent. ko1 18:00 Patient has correct armband on for positive identification. Bed in low position. Call ko1 light in reach. Side rails up X 1. Provided Education on: na. Pulse ox on. NIBP on. Door closed. Noise minimized. Lights dimmed. Warm blanket given. 18:00 No provider procedures requiring assistance completed. ko1 20:07 IV discontinued, intact, bleeding controlled, No redness/swelling at site. Pressure rv dressing applied. Administered Medications: 18:05 Drug: NS 0.9% IV 1000 ml IV at 1 bolus Per protocol; 1000 mL bolus Route: IV; Rate: 1 ko1 bolus; Site: right antecubital; 20:07 Follow up: IV Status: Completed infusion; IV Intake: 1000ml rv 18:55 Not Given (patient drivingg): ativan0.5 mg IVP once; may give if not driving ko1 Medication: 18:00 VIS not applicable for this client. ko1 Intake: 20:07 IV: 1000ml; Total: 1000ml. rv Outcome: 19:43 Discharge ordered by . cp 20:07 Discharged to home ambulatory, rv 20:07 Condition: good 20:07 Discharge instructions given to patient, Instructed on discharge instructions, follow up and referral plans. Demonstrated understanding of instructions, follow-up care, 20:07 Patient left the ED. rv Signatures: Dispatcher [employer] Nancy Post, Bong Woody mr BernardKatia RN RN Sarwat Candelaria PA PA cp Vicente, Ronaldo, RN RN rv Juli Thompson RN RN kb3 [place] Deluna RN RN ko1 Corrections: (The following items were deleted from the chart) 17:22 17:03 Acuity: RISHI 3 ph kb3
--- NOTE | 2023-12-22 19:44 | EDPHYS ---
Physician Documentation [facility] Name: Kishor León Age: 28 yrs Sex: Male : 1995 Arrival Date: 12/22/2023 Time: 16:55 Bed 6 Private MD: ED Physician Maverick Deleon HPI: 12/21 17:13 This 28 yrs old Male presents to ER via Ambulatory with complaints of Chest cp Pain, Palpitations, Numbness Of Arm. 17:13 The patient presents with a history of heart racing. Context: The symptoms occur at cp rest. Onset: The symptoms/episode began/occurred today, about 1440. Duration: The patient or guardian reports a single episode, that is still ongoing, and unchanged. Associated signs and symptoms: Pertinent positives: chest pain, tingling of left fingertips. Patient admits to taking pre-workout supplement and an OTC stimulant, YK11, prior to working out at home. 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 - Social history:: Smoking status: Patient denies any tobacco usage or history of. ROS: 17:15 Constitutional: Negative for body aches, chills, fever, poor PO intake, cp 17:15 Cardiovascular: Positive for chest pain, palpitations, 17:15 Respiratory: Negative for cough, shortness of breath, wheezing, 17:15 Neuro: Positive for tingling, of the left hand fingertips, Negative for headache, syncope, near syncope, 17:15 Eyes: Negative for injury, pain, redness, and discharge, cp 17:15 ENT: Negative for drainage from ear(s), ear pain, sore throat, difficulty swallowing, cp difficulty handling secretions, 17:15 Abdomen/GI: Negative for abdominal pain, nausea, vomiting, and diarrhea, constipation, 17:15 All other systems are negative, Exam: 17:13 ECG was reviewed by the Attending Physician. cp 17:20 Constitutional: The patient appears in no acute distress, alert, awake, cp non-diaphoretic, non-toxic, well developed, well nourished, anxious, 17:20 Head/Face: Normocephalic, atraumatic. cp 17:20 Eyes: Periorbital structures: appear normal, Conjunctiva: normal, no exudate, no injection, Sclera: no appreciated abnormality, Lids and lashes: appear normal, bilaterally, 17:20 ENT: External ear(s): are unremarkable, Nose: is normal, Mouth: Lips: moist, Oral mucosa: pink and intact, moist, Posterior pharynx: is normal, airway is patent, no erythema, no exudate, 17:20 Neck: ROM/movement: is normal, is supple, without pain, no range of motions limitations, 17:20 Chest/axilla: Inspection: normal, 17:20 Cardiovascular: Rate: tachycardic, Rhythm: regular, Edema: is not appreciated, 17:20 Respiratory: the patient does not display signs of respiratory distress, Respirations: normal, no use of accessory muscles, no retractions, labored breathing, is not present, Breath sounds: are clear throughout, no decreased breath sounds, no stridor, no wheezing, 17:20 Abdomen/GI: Inspection: abdomen appears normal, Palpation: abdomen is soft and non-tender, in all quadrants, 17:20 Back: pain, is absent, ROM is normal, 17:20 Neuro: Orientation: to person, place \T\ time. Mentation: is normal, Motor: is normal, Sensation: tingling, that is mild, of the fingertips of left hand, 18:22 ECG was reviewed by the Attending Physician. cp Vital Signs: 17:03 Weight 52.16 kg; Height 5 ft. 4 in. ; ph 17:12 BP 142 / 83; Pulse 102; Resp 18; Temp 98; ph 18:31 BP 134 / 78 LA Supine (auto/reg); Pulse 92; Resp 15; Pulse Ox 99% ; ko1 18:31 BP 128 / 72 RA Supine (auto/reg); Pulse 95; Resp 15; Pulse Ox 100% ; ko1 20:06 BP 121 / 74; Pulse 91; Resp 18; Temp 98; Pulse Ox 99% ; rv 17:03 Body Mass Index 19.74 (52.16 kg, 162.56 cm) ph Elinor Coma Score: 20:06 Eye Response: spontaneous(4). Motor Response: obeys commands(6). Verbal Response: rv oriented(5). Total: 15. MDM: 17:16 Patient medically screened. cp 18:00 Differential diagnosis: arrythmia, dehydration, stress disorder, SVT, acute ID, illegal cp drug use. 19:42 Data reviewed: vital signs, nurses notes, lab test result(s), EKG, radiologic studies, cp plain films, and as a result, I will discharge patient. 19:42 I considered the following discharge prescriptions or medication management in the emergency department Medications were administered in the Emergency Department. See MAR. Test considered but Not performed: CT: chest. Counseling: I had a detailed discussion with the patient and/or guardian regarding the historical points, exam findings, and any diagnostic results supporting the discharge/admit diagnosis, lab results, radiology results, the need for outpatient follow up, a family practitioner, to return to the emergency department if symptoms worsen or persist or if there are any questions or concerns that arise at home. Response to treatment: the patient's symptoms have markedly improved after treatment, and as a result, I will discharge patient. Special discussion: Based on the patient's history, exam, and Dx evaluation, there is no indication for emergent intervention or inpatient Tx. It is understood by the patient/guardian that if the Sx's persist or worsen they need to return immediately for re-evaluation. 12/21 17:12 Order name: Basic Metabolic Panel; Complete Time: 18:44 cp 12/21 18:45 Interpretation: Normal except: GLUC 114; CRE 1.40; GFR 70. cp 12/21 17:12 Order name: CBC with Diff; Complete Time: 18:20 cp 18 18:20 Interpretation: Normal except: WBC 11.60; RBC 5.44; PLT 142; YONAS% 85.8; LYM% 10.3; NEUT cp A 10.0. 12/21 17:12 Order name: D-Dimer; Complete Time: 18:20 cp 18 17:12 Order name: Magnesium; Complete Time: 18:44 cp 18 17:12 Order name: Troponin HS; Complete Time: 18:44 cp 18 17:12 Order name: UDS; Complete Time: 18:44 cp 18 17:12 Order name: Urinalysis W/Microscopic; Complete Time: 18:20 cp 18 18:20 Interpretation: Normal except: UPH 7.5. cp 18 17:12 Order name: TSH; Complete Time: 18:44 cp 12/21 17:12 Order name: T3 Free; Complete Time: 18:44 cp 12/21 17:12 Order name: T4 Free; Complete Time: 18:44 cp 12/21 17:12 Order name: XRAY Chest (1 view); Complete Time: 18:20 cp 12/21 17:12 Order name: EKG; Complete Time: 17:13 cp 12/21 17:12 Order name: Cardiac monitoring; Complete Time: 17:33 cp 12/21 17:12 Order name: EKG - Nurse/Tech; Complete Time: 17:14 cp 12/21 17:12 Order name: IV Saline Lock; Complete Time: 17:51 cp 12/21 17:12 Order name: Labs collected and sent; Complete Time: 17:51 cp 12/21 17:12 Order name: O2 Per Protocol; Complete Time: 17:34 cp 12/21 17:12 Order name: O2 Sat Monitoring; Complete Time: 17:34 cp 12/21 18:21 Order name: Blood Pressure Recheck: bilateral upper extremity; Complete Time: 18:27 cp 12/21 18:52 Order name: EKG - Nurse/Tech cp EC:13 Rate is 91 beats/min. Rhythm is regular. NJ interval is normal. QRS interval is normal. cp QT interval is normal. T waves are Inverted in lead aVR. Interpreted by me. Reviewed by me. 18:22 Rate is 68 beats/min. Rhythm is regular. NJ interval is normal. QRS interval is normal. cp QT interval is normal. T waves are Inverted in lead aVR. Interpreted by me. Reviewed by me. Administered Medications: 18:05 Drug: NS 0.9% IV 1000 ml IV at 1 bolus Per protocol; 1000 mL bolus Route: IV; Rate: 1 ko1 bolus; Site: right antecubital; 20:07 Follow up: IV Status: Completed infusion; IV Intake: 1000ml rv 18:55 Not Given (patient drivingg): ativan0.5 mg IVP once; may give if not driving ko1 Disposition Summary: 12/22/23 19:43 Discharge Ordered Notes: Location: Home cp Problem: new cp Symptoms: have improved cp Condition: Stable cp Diagnosis - Palpitations cp - Chest pain, unspecified cp - Paresthesia of skin - tingling of fingertips of left hand cp Followup: cp - With: Private Physician - When: 2 - 3 days - Reason: Recheck today's complaints Discharge Instructions: - Discharge Summary Sheet cp - Nonspecific Chest Pain, Adult cp - Palpitations cp - Paresthesia cp - Ambulatory Cardiac Monitoring cp Forms: - Medication Reconciliation Form cp - Thank You Letter cp - Antibiotic Education cp - Prescription Opioid Use cp - Patient Portal Instructions cp - Leadership Thank You Letter cp - Work release form as9 Addendum: 12/24/2023 14:27 I was immediately available for consultation during this patient's visit. I did not e c2 personally see the patient or discuss the patient with the VEENA. . Signatures: Dispatcher [employer] Katia Mcneal RN RN ph Sarwat Peres PA PA cp [place] Deluna RN RN ko1 Maverick Deleon MD MD ec2 Juancho Issa RN rv Corrections: (The following items were deleted from the chart) 12/21 19:49 17:13 Patient admits to taking pre-workout supplement and an OTC stimulant prior to cp working out at home. cp
[2023-12-22 20:27] VITALS: BP 121/74; TEMP 98; O2SAT 99
--- NOTE | 2023-12-23 14:08 | EKG ---
Test Date: 2023-12-22 Test Time: 16:58:28 Nib Adjuster: PH MEASUREMENT RESULTS: Intervals: Rate: 91 CT: 158 QRSD: 86 QT: 320 QTc: 393 [place]: P: CT: 158 QRS: 136 T: 96 INTERPRETIVE STATEMENTS: Normal sinus rhythm with sinus arrhythmia Right axis deviation Nonspecific ST abnormality Abnormal ECG No previous ECG available for comparison Electronically Signed On 12-23-23 14:05:29 CDT by Bill Lowe
--- NOTE | 2023-12-23 14:08 | EKG ---
Test Date: 2023-12-22 Test Time: 18:16:36 Fermenter Wine: Elena MEASUREMENT RESULTS: Intervals: Rate: 68 IL: 158 QRSD: 88 QT: 352 QTc: 374 [place]: P: 54 IL: 158 QRS: 94 T: 48 INTERPRETIVE STATEMENTS: Normal sinus rhythm Normal ECG Compared to ECG 12/22/2023 16:58:28 Sinus arrhythmia no longer present Right-axis deviation no longer present ST (T wave) deviation no longer present Electronically Signed On 12-23-23 14:05:19 CDT by Bill Lowe
== END ==
LOC: ER 16:55
DX: R00.2 Palpitations (principal); R07.9 Chest pain, unspecified; R20.2 Paresthesia of skin
CPT/HCPCS: 96361; 93005 ×2; 85025; 81001; 80048; 36415; 83735; 85379; 84443; 84484; 84481; 84439; 80307; 71045; 96360; 99285; J7030

== ENCOUNTER 2025-05-11 04:26 | Emergency (ER) | payer BC ==
--- NOTE | 2025-05-11 06:29 | RAD REPORT ---
EXAM: CT Maxillofacial Without Intravenous Contrast CLINICAL HISTORY: The patient is 29 years old and is Male; Mandibular dislocation s/p reduction, ri ght TMJ pain. TECHNIQUE: Axial computed tomography images of the face without intravenous contrast. Sagittal an d coronal reformatted images were created and reviewed. This CT exam was performed using one or more of the following dose reduction techniques: automated exposure control, adjustment of the mA a nd/or kV according to patient size, and/or use of iterative reconstruction technique. COMPARISON: No relevant prior studies available. FINDINGS: Bones/joints: No acute fracture or dislocation. No significant arthropathy in the TMJs. Soft tissues: Unremarkable. Orbits: Unremarkable. Sinuses: Unremarkable. No air-fluid levels. Mastoid air cells: No significant mastoid fluid. Auditory system: No middle ear fluid. Dental: Bilateral maxillary dental caries. IMPRESSION: No acute fracture or dislocation. Electronically signed by: Mely Gordon MD 05/11/2025 06:24 AM CDT RP V2 Due to temporary technical issues with the PACS/[employer] reporting system, reports are being dorie d by the in-house radiologist without review as a courtesy to ensure prompt reporting the interpreting radiologist is fully responsible for the content of the report. Transcribed Date/Time: 05/11/2025 6:28 AM
--- NOTE | 2025-05-11 06:37 | ER ---
Nurse's Notes [facility] Name: Kishor León Age: 29 yrs Sex: Male : 1995 Arrival Date: 05/11/2025 Time: 04:26 Bed 14 Private MD: Diagnosis: Temporomandibular joint disorder, unspecified;Arthralgia of temporomandibular joint Presentation: 05/11 04:39 Chief complaint: Patient states: PT STATES HIS JAW CAME OUT OF PLACE FOR APPROX 20 br2 MINUTES. PT WAS ABLE TO GET JAW BACK IN PLACE BUT IS HAVING PAIN NOW. PT TOOK TYLENOL 1300MG OF TYLENOL AT 2230. Coronavirus screen: Client denies travel out of the [place] in the last 14 days. Ebola Screen: Patient denies exposure to infectious person. Initial Sepsis Screen: Does the patient meet any 2 criteria? No. Patient's initial sepsis screen is negative. Does the patient have a suspected source of infection? No. Patient's initial sepsis screen is negative. Risk Assessment: Do you want to hurt yourself or someone else? Patient reports no desire to harm self or others. Onset of symptoms was May 10, 2025 at 22:00. 04:39 Method Of Arrival: Ambulatory br2 04:39 Acuity: RISHI 4 br2 Triage Assessment: 04:42 General: Appears in no apparent distress. comfortable, Behavior is calm, cooperative. br2 Pain: Complains of pain in right jaw Pain currently is 4 out of 10 on a pain scale. 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 - Infectious Disease History:: Denies. - Social history:: Smoking status: Patient denies any tobacco usage or history of. Patient uses alcohol, occasionally. Patient/guardian denies using street drugs. - Family history:: not pertinent. - Hospitalizations: : No recent hospitalization is reported. Screenin:57 [facility] ED Fall Risk Assessment (Adult) History of falling in the last 3 months, tb4 including since admission No falls in past 3 months (0 pts) Confusion or Disorientation No (0 pts) Intoxicated or Sedated No (0 pts) Impaired Gait No (0 pts) Mobility Assist Device Used No (0 pt) Altered Elimination No (0 pt) Score/Fall Risk Level 0 - 2 = Low Risk Oriented to surroundings, Maintained a safe environment, Educated pt \T\ family on fall prevention, incl call for assistance when getting out of bed. Abuse screen: Denies threats or abuse. Nutritional screening: No deficits noted. Tuberculosis screening: No symptoms or risk factors identified. Assessment: 04:57 Reassessment: Patient is alert, oriented x 3, equal unlabored respirations, skin tb4 warm/dry/pink. General: Appears in no apparent distress. Behavior is calm, cooperative. Pain: Complains of pain in right jaw Pain does not radiate. Pain currently is 3 out of 10 on a pain scale. Quality of pain is described as pressure, Pain began gradually, 1 day ago. Is continuous, Alleviated by nothing. Aggravated by eating, drinking. 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 Full function Gait is steady, Speech is normal, Facial symmetry appears normal. Cardiovascular: Denies chest pain, lightheadedness, nausea, shortness of breath, vomiting. Respiratory: Airway is patent Trachea midline Respiratory effort is even, unlabored, Respiratory pattern is regular, symmetrical. GI: No signs and/or symptoms were reported involving the gastrointestinal system. : No signs and/or symptoms were reported regarding the genitourinary system. EENT: No signs and/or symptoms were reported regarding the EENT system. Derm: Skin is intact, Skin is moist, Skin is pink, warm \T\ dry. Skin temperature is warm. Musculoskeletal: Circulation, motion, and sensation intact. Capillary refill < 3 seconds, is brisk, in bilateral fingers. Range of motion: intact in all extremities. Vital Signs: 04:39 BP 136 / 89; Pulse 67; Resp 18; Temp 97.1(TE); Pulse Ox 100% on R/A; Weight 52.16 kg; br2 Height 5 ft. 4 in. ; Pain 4/10; 04:57 BP 119 / 76; Pulse 73; Resp 18; Pulse Ox 98% on R/A; Weight 52.16 kg; Height 5 ft. 4 tb4 in. ; Pain 3; 06:10 BP 124 / 78; Pulse 85; Resp 18; Pulse Ox 99% on R/A; tb4 04:57 Body Mass Index 19.74 (52.16 kg, 162.56 cm) tb4 04:39 Pain Scale: Adult br2 04:57 Pain Scale: Adult tb4 [place] Coma Score: 06:33 Eye Response: spontaneous(4). Motor Response: obeys commands(6). Verbal Response: rn oriented(5). Total: 15. ED Course: 04:29 Patient arrived in ED. gm2 04:30 Sergio Mayer MD is Attending Physician. rn 04:42 Triage completed. br2 04:42 Arm band placed on right wrist. br2 04:57 Patient has correct armband on for positive identification. Bed in low position. Call tb4 light in reach. Client placed on continuous cardiac and pulse oximetry monitoring. NIBP monitoring applied. Door closed. Lights dimmed. 05:27 CT Facial Bones W/O Con In Process Unspecified. EDMS 06:10 No provider procedures requiring assistance completed. tb4 06:37 Mely Blunt MD is Referral Physician. rn 06:47 Provided Education on: If symptoms continue, return to ER.. tb4 06:47 Patient did not have IV access during this emergency room visit. tb4 Administered Medications: No medications were administered Medication: 04:57 VIS not applicable for this client. tb4 Outcome: 06:36 Discharge ordered by . rn 06:46 Discharged to home ambulatory, tb4 06:46 Condition: stable 06:46 Discharge instructions given to patient, Instructed on discharge instructions, follow up and referral plans. Demonstrated understanding of instructions, follow-up care, 06:47 Patient left the ED. tb4 Signatures: Dispatcher [employer] EDMS Sergio Mayer MD MD rn Mitchell, Ginger 2 Rosy Rangel RN RN br2 Zita Benson RN RN tb4
--- NOTE | 2025-05-11 06:37 | EDPHYS ---
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 Has been taught how to put it rn back in. Put his own jaw back in last night but having pain and soreness near the right TMJ. Patient does not feel like it is dislocated at this time and can open and close jaw. No difficulty breathing or swallowing.. 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 - Infectious Disease History:: Denies. - Social history:: Smoking status: Patient denies any tobacco usage or history of. Patient uses alcohol, occasionally. Patient/guardian denies using street drugs. - Family history:: not pertinent. - Hospitalizations: : No recent hospitalization is reported. ROS: 05:13 Constitutional: Negative for fever, chills, and weight loss, ENT: Positive for right rn mandibular pain Neck: Negative for injury, pain, and swelling, Cardiovascular: Negative for chest pain, palpitations, and edema, Respiratory: Negative for shortness of breath, cough, wheezing, and pleuritic chest pain, Exam: 05:13 Constitutional: This is a well developed, well nourished patient who is awake, alert, rn and in no acute distress. Head/Face: Normocephalic, atraumatic. ENT: Jaw does not appear to be dislocated. No intraoral injury. No focal swelling. Mild tenderness over right zygoma and TMJ region without deformity. Vital Signs: 04:39 BP 136 / 89; Pulse 67; Resp 18; Temp 97.1(TE); Pulse Ox 100% on R/A; Weight 52.16 kg; br2 Height 5 ft. 4 in. ; Pain 4/10; 04:57 BP 119 / 76; Pulse 73; Resp 18; Pulse Ox 98% on R/A; Weight 52.16 kg; Height 5 ft. 4 tb4 in. ; Pain 3/10; 06:10 BP 124 / 78; Pulse 85; Resp 18; Pulse Ox 99% on R/A; tb4 04:57 Body Mass Index 19.74 (52.16 kg, 162.56 cm) tb4 04:39 Pain Scale: Adult br2 04:57 Pain Scale: Adult tb4 Motley Coma Score: 06:33 Eye Response: spontaneous(4). Motor Response: obeys commands(6). Verbal Response: rn oriented(5). Total: 15. MDM: 04:30 Medical Screening Exam initiated rn 06:33 Differential diagnosis: Contusion of Mandibular fracture, dislocation. Data reviewed: rn vital signs, nurses notes, radiologic studies, CT scan, and as a result, I will admit patient. Independent interpretation of the following test(s) in the Emergency Department CT Scan: My interpretation is CT face without acute fracture or deformity per my interpretation. Counseling: I had a detailed discussion with the patient and/or guardian regarding the historical points, exam findings, and any diagnostic results supporting the discharge/admit diagnosis, radiology results, the need for outpatient follow up, to return to the emergency department if symptoms worsen or persist or if there are any questions or concerns that arise at home. Special discussion: I discussed with the patient/guardian in detail that at this point there is no indication for admission to the hospital. It is understood, however, that if the symptoms persist or worsen the patient needs to return immediately for re-evaluation. 05/11 04:36 Order name: CT Facial Bones W/O Con; Complete Time: 06:33 rn Administered Medications: No medications were administered Disposition Summary: 05/11/25 06:36 Discharge Ordered Notes: Location: Home rn Problem: new rn Symptoms: have improved rn Condition: Stable rn Diagnosis - Temporomandibular joint disorder, unspecified rn - Arthralgia of temporomandibular joint rn Followup: rn - With: Private Physician - When: As needed - Reason: Recheck today's complaints, Re-evaluation by your physician Followup: rn - With: Mely Blunt MD - When: As needed - Reason: Recheck today's complaints, Re-evaluation by your physician Discharge Instructions: - Discharge Summary Sheet rn - Jaw Dislocation rn - Temporomandibular Joint Syndrome rn Forms: - Medication Reconciliation Form rn - 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
[2025-05-11 06:58] VITALS: TEMP 97.1
[2025-05-11 07:03] VITALS: BP 124/78; O2SAT 99
== END 2025-05-11 06:47 | disposition home or self-care (01) ==
LOC: ER 04:26
DX: M26.621 Arthralgia of right temporomandibular joint (principal); M26.601 Right temporomandibular joint disorder, unspecified
CPT/HCPCS: 70486; 76377; 99283